=== PATIENT | female | born 1995 | race Hispanic/Latino ===

== ENCOUNTER → 2019-05-24 | Outpatient (CLI) | payer SELFPAY ==
[~2019-05-24] MED LIST: ACET-685 PO; ACET1TAB34 PO; AMOX500T PO; CETI10CA PO; FLUT16SP2 NS; FLUT9.9S NS; NORG1TAB7 PO; TRAZ-168 PO
[2019-05-24 16:32] LABS: BASOPHIL # 0.1 10^3/uL (0.0-0.1); BASOPHIL % 0.6 % (0.0-0.2); EOSINOPHIL # 0.1 10^3/uL (0.0-0.2); EOSINOPHIL % 1.1 % (0.0-5.0); LYMPHOCYTES # 3.63 10^3/uL1 (1.0-4.8); LYMPHOCYTES % 33.9 % (24.0-44.0); MEAN CORP HGB 25.9 pg (26-34); MONOCYTES # 0.9 10^3/uL (0.3-0.8); MONOCYTES % 8.7 % (5.0-12.0); NEUTROPHILS % 55.5 % (41.0-85.0); RED CELL DISTRIBUTION WIDTH 15.3 % (11.5-14.5)
[2019-05-24 16:47] LABS: APPEARANCE,URINE CLEAR (CLEAR); BILIRUBIN,URINE NEGATIVE (NEGATIVE); UA COLOR YELLOW (YELLOW); UROBILINOGEN,URINE NORMAL (NEGATIVE)
[2019-05-24 16:49] LABS: CALCIUM 8.7 mg/dL (8.4-10.5); CARBON DIOXIDE 26.1 mmol/L (20.0-32)
== END | disposition home or self-care (01) ==
LOC: LAB 16:02
PROVIDERS: ATTEND Nurse Practitioner Family
DX: R30.0 Dysuria (principal); R35.0 Frequency of micturition
CPT/HCPCS: 36415; 80053; 81002; 81003; 85025; 87086

== ENCOUNTER 2019-06-14 20:08 | Emergency (ER) | payer OTHER, SELFPAY ==
[~2019-06-14] VITALS: Ht 160 cm; Wt 95.7 kg
[2019-06-14 20:38] VITALS: BP 116/82
[2019-06-14 20:46] VITALS: BP 116/82
--- NOTE | 2019-06-14 21:13 | ER.PDOC ---
General Chief Complaint: Sore Throat Stated Complaint: WELL CHECK TRAVEL OUT OF US: No Time seen by MD: 21:10 Source: patient Exam Limitations: no limitations History of Present Illness Initial Comments Had a tickle in the throat and coughed once at work and was sent to the ED to get clearance to go back to work. He has no coughed since then, She denies sore throat. No fever or chills. Severity: mild Associated Symptoms: cough Allergies: Coded Allergies: No Known Allergies (Unverified , 02/19/16) Home Meds Reported Medications Fluticasone Propionate (Flonase Allergy Relief) 9.9 Ml [place].susp, 9.9 ML NS BID 02/19/16 Cetirizine Hcl (ZYRTEC) 10 Mg Capsule, 10 MG PO BID, CAPSULE 02/19/16 Trazodone Hcl (TRAZODONE HCL) 100 Mg Tablet, 100 MG PO HS, TABLET 02/19/16 Past Medical History Medical History: no pertinent history Surgical History: no surgical history Social History Alcohol Use: rarely Drug Use: none Review of Systems Constitutional: no symptoms reported EENTM: no symptoms reported Respiratory: see HPI Cardiovascular: no symptoms reported Gastrointestinal: no symptoms reported All Other Systems: Reviewed and Negative Physical Exam General Appearance: No Apparent Distress, WD/WN Neck: Non-Tender, Full Range of Motion, Supple Respiratory: chest non-tender, lungs clear, normal breath sounds, no respiratory distress, no accessory muscle use CVS: reg rate & rhythm, no murmur, no gallop, pulses nml, nml capillary refill Gastrointestinal: Normal Bowel Sounds, No Organomegaly, No Pulsatile Mass, Non Tender Back: Normal Inspection Extremities: Normal Range of Motion 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
== END 2019-06-14 21:17 | disposition home or self-care (01) ==
LOC: ER 20:08
DX: R05 Cough (principal)
CPT/HCPCS: 99281